=== PATIENT | female | born 1960 | race Caucasian/White ===

== ENCOUNTER 2023-04-26 12:05 | Inpatient (IN) | payer MEDICAID ==
[~2023-04-26] VITALS: Ht 175.3 cm; Wt 67.3 kg
[2023-04-26 15:10] LABS: SODIUM 136 MMOL/L (135-145)
[2023-04-26 15:11] LABS: ALBUMIN 4.1 G/DL (3.4-5.0); BLOOD UREA NITROGEN 14 MG/DL (7-18); eCRCL 72 ML/MIN
[2023-04-26 16:17] LABS: BASOPHILS # (AUTO) 0.1 X10'3 (0-0.2); EOSINOPHILS # (AUTO) 0.1 X10'3 (0-0.9); EOSINOPHILS % (AUTO) 0.5 % (0-6); HEMATOCRIT 50.8 % (35.0-45.0); HEMOGLOBIN 17.2 g/dl (12.0-16.0); LYMPHOCYTES # (AUTO) 1.3 X10'3 (1.1-4.8); LYMPHOCYTES % (AUTO) 9.4 % (21-51); MEAN CORPUSCULAR HEMOGLOBIN 31.2 PG (27.0-31.0); MEAN CORPUSCULAR HGB CONC 33.8 g/dL (33.0-36.5); MEAN CORPUSCULAR VOLUME 92.5 FL (78-98); MEAN PLATELET VOLUME 10.2 FL (7.4-10.4); MONOCYTES # (AUTO) 0.8 X10'3 (0-0.9); MONOCYTES % (AUTO) 5.7 % (2-12); NEUTROPHILS # (AUTO) 11.5 X10'3 (1.8-7.7); NEUTROPHILS % (AUTO) 83.4 % (42-75); PLATELET COUNT 112 X10'3 (140-440); RED CELL DISTRIBUTION WIDTH 13.2 % (11.5-14.5); WHITE BLOOD COUNT 13.8 X10'3 (4.5-11.0)
[2023-04-26] MEDS ORDERED: ondansetron/PF 4mg/2ml inj IV PRN (17:35)
[2023-04-26] MEDS ORDERED: potassium Cl 20 mEq SR tablet PO PRN ×2 (17:35)
[2023-04-26] MEDS ORDERED: HYDROcodone/acetaminophen 5mg/325mg tablet PO PRN (17:35)
[2023-04-26] MEDS ORDERED: magnesium Cl slow-release 64mg tablet PO PRN (17:35)
[2023-04-26] MEDS ORDERED: magnesium 2GM in 50ml NS 50 ML IV PRN (17:35)
[2023-04-26] MEDS ORDERED: magnesium hydroxide 30ml (MOM) UD suspension PO PRN (17:35)
[2023-04-26] MEDS ORDERED: mag hydrox/Alum hydrox/simeth 30ml oral suspension PO PRN (17:35)
[2023-04-26] MEDS ORDERED: magnesium 4gm in 100ml NS 100 ML IV PRN (17:35)
[2023-04-26] MEDS ORDERED: morphine 2 MG/ML inj. syringe IV PRN (17:35)
[2023-04-26] MEDS ORDERED: potassium Cl 40MEQ/1/2NS 520ml 520 ML IV PRN (17:35)
[2023-04-26] MEDS ORDERED: diphenhydrAMINE 25mg capsule PO PRN (17:35)
[2023-04-26] MEDS ORDERED: acetaminophen 325mg tablet PO PRN ×2 (17:35)
[2023-04-26 18:32] LABS: HEMOGLOBIN A1C 5.5 % (4.5-6.2)
[2023-04-26 18:37] LABS: ANION GAP 14 (8-16); BUN/CREATININE RATIO 16.9 (10.0-20.0); CALCIUM 10.4 MG/DL (8.5-10.1); CHLORIDE 99 MMOL/L (99-107); CREATININE 0.83 MG/DL (0.40-0.90); GLUCOSE 100 MG/DL (70-104); POTASSIUM 4.1 MMOL/L (3.5-5.1); TOTAL CARBON DIOXIDE 23.2 MMOL/L (24-32); eGFR 69 ML/MIN
[2023-04-26] MEDS: K and/or MAG REPLACEMENT MC SCH (19:08)
[2023-04-26] MEDS ORDERED: metroNIDAZOLE-Flagyl 500mg/NS 100 ML IV SCH (19:10)
[2023-04-26] MEDS ORDERED: CefTRIAXone 2gm/D5W 50ml BAG 50 ML IV SCH (19:15)
[2023-04-26 19:17] LABS: MAGNESIUM 2.1 MG/DL (1.5-2.4)
[2023-04-26 19:20] LABS: PRO BRAIN NATRIURETIC PEPTIDE 662 PG/ML (0-125)
[2023-04-26] MEDS: metroNIDAZOLE-Flagyl 500mg/NS 100 ML IV SCH (19:46)
[2023-04-26] MEDS: nicotine 14mg patch - 24hr TD SCH (19:46)
[2023-04-26] MEDS: docusate sod 100mg capsule PO SCH (20:00)
[2023-04-26] MEDS: heparin, porcine 5000 units/ml vial SQ SCH (20:00)
[2023-04-26] MEDS ORDERED: CefTRIAXone 2gm/D5W 50ml BAG 50 ML IV ONE (20:50)
[2023-04-27] MEDS: morphine 2 MG/ML inj. syringe IV PRN ×3 (00:49→23:41)
[2023-04-27] MEDS: metroNIDAZOLE-Flagyl 500mg/NS 100 ML IV SCH ×4 (01:13→23:15)
[2023-04-27 03:00] VITALS: RESP 16; O2SAT 96
[2023-04-27] MEDS ORDERED: CefTRIAXone 2gm/D5W 50ml BAG 50 ML IV SCH ×2 (03:11→08:00)
[2023-04-27] MEDS: HYDROcodone/acetaminophen 10/325mg tab PO PRN ×4 (03:18→22:42)
[2023-04-27] MEDS: HYDROmorphone/PF 0.2 MG/ML SYRINGE IV PRN ×2 (03:18→17:45)
[2023-04-27 06:28] LABS: BASOPHILS # (AUTO) 0.1 X10'3 (0-0.2); BASOPHILS % (AUTO) 0.8 % (0-1); EOSINOPHILS # (AUTO) 0.2 X10'3 (0-0.9); EOSINOPHILS % (AUTO) 1.8 % (0-6); HEMATOCRIT 42.2 % (35.0-45.0); HEMOGLOBIN 14.3 g/dl (12.0-16.0); LYMPHOCYTES # (AUTO) 0.9 X10'3 (1.1-4.8); LYMPHOCYTES % (AUTO) 8.4 % (21-51); MEAN CORPUSCULAR HEMOGLOBIN 31.2 PG (27.0-31.0); MEAN CORPUSCULAR VOLUME 91.8 FL (78-98); MEAN PLATELET VOLUME 9.8 FL (7.4-10.4); MONOCYTES # (AUTO) 1.1 X10'3 (0-0.9); MONOCYTES % (AUTO) 10.4 % (2-12); NEUTROPHILS # (AUTO) 8.7 X10'3 (1.8-7.7); NEUTROPHILS % (AUTO) 78.6 % (42-75); PLATELET COUNT 121 X10'3 (140-440)
[2023-04-27 07:00] VITALS: BP 147/96; PULSE 81; RESP 16; TEMP 98.3; O2SAT 98
[2023-04-27 07:37] LABS: ALANINE AMINOTRANSFERASE 30 U/L (12-78); ALBUMIN/GLOBULIN RATIO 0.7 (1.1-1.5); ALKALINE PHOSPHATASE 82 IU/L (46-116); ANION GAP 10 (8-16); ASPARTATE AMINO TRANSFERASE 28 U/L (10-37); BILIRUBIN,TOTAL 0.7 MG/DL (0.1-1.0); BLOOD UREA NITROGEN 13 MG/DL (7-18); BUN/CREATININE RATIO 15.7 (10.0-20.0); CALCIUM 9.6 MG/DL (8.5-10.1); CHLORIDE 104 MMOL/L (99-107); CHOL/HDL RATIO 2.4 (0.00-4.99); CHOLESTEROL 123 MG/DL (0-200); CREATININE 0.83 MG/DL (0.40-0.90); GLUCOSE 107 MG/DL (70-104); HDL CHOLESTEROL 52 MG/DL (35-60); LDL CHOLESTEROL 59 MG/DL (50-100); MAGNESIUM 1.7 MG/DL (1.5-2.4); PHOSPHORUS 2.1 MG/DL (2.3-4.5); POTASSIUM 3.7 MMOL/L (3.5-5.1); SODIUM 140 MMOL/L (135-145); TOTAL CARBON DIOXIDE 26.3 MMOL/L (24-32); TOTAL PROTEIN 7.2 G/DL (6.4-8.2); TRIGLYCERIDES 50 MG/DL (20-135); eCRCL 72 ML/MIN; eGFR 69 ML/MIN
[2023-04-27] MEDS: K and/or MAG REPLACEMENT MC SCH ×2 (08:00→20:00)
[2023-04-27] MEDS: heparin, porcine 5000 units/ml vial SQ SCH ×2 (08:41→19:10)
[2023-04-27] MEDS: docusate sod 100mg capsule PO SCH ×2 (08:41→19:10)
[2023-04-27 10:00] VITALS: BP 138/86; PULSE 73; RESP 16; TEMP 97.9; O2SAT 97
[2023-04-27 10:48] VITALS: RESP 18; O2SAT 97
[2023-04-27] MEDS ORDERED: VANCOMYCIN 1,500MG inj. 1,500 MG in normal saline 500ml IV soln 300 ML IV SCH (13:50)
[2023-04-27] MEDS: lactobacillus rhamnosus 10,000 MMU CELLS/CAPSULE PO SCH (14:17)
[2023-04-27] MEDS ORDERED: VANCOMYCIN 750MG IV in NS 250 ML IV ONE (14:20)
[2023-04-27] MEDS: clindamycin 300mg/D5W 50mL 50 ML IV SCH ×2 (14:25→21:03)
[2023-04-27] MEDS ORDERED: vancomycin 1,750 MG in NS 350ml IV soln IV ONE (14:30)
[2023-04-27] MEDS ORDERED: vancomycin/NS 1 GM ADD-VANTAGE 250 ML X 1 DOSE IV ONE (15:50)
[2023-04-27] MEDS: nicotine 14mg patch - 24hr TD SCH (17:50)
[2023-04-27 18:00] VITALS: BP 173/100; PULSE 74; RESP 15; TEMP 98.7; O2SAT 100
[2023-04-27] MEDS ORDERED: amLODIPine 5mg tablet PO ONE (18:40)
[2023-04-27 22:00] VITALS: BP 162/81; PULSE 77; RESP 16; TEMP 98.8; O2SAT 95
[2023-04-28] MEDS: clindamycin 300mg/D5W 50mL 50 ML IV SCH ×2 (01:57→07:26)
[2023-04-28] MEDS: HYDROcodone/acetaminophen 10/325mg tab PO PRN (02:42)
[2023-04-28] MEDS: HYDROmorphone/PF 0.2 MG/ML SYRINGE IV PRN (03:13)
[2023-04-28] MEDS ORDERED: vancomycin/NS 1 GM ADD-VANTAGE 250 ML IV SCH (04:00)
[2023-04-28] MEDS: morphine 2 MG/ML inj. syringe IV PRN ×2 (04:51→09:00)
[2023-04-28 06:00] VITALS: BP 167/98; PULSE 78; RESP 17; TEMP 97.9; O2SAT 99
[2023-04-28 06:12] LABS: BASOPHILS % (AUTO) 0.5 % (0-1); EOSINOPHILS # (AUTO) 0.2 X10'3 (0-0.9); EOSINOPHILS % (AUTO) 2.6 % (0-6); HEMATOCRIT 46.1 % (35.0-45.0); LYMPHOCYTES # (AUTO) 1.4 X10'3 (1.1-4.8); LYMPHOCYTES % (AUTO) 16.7 % (21-51); MEAN CORPUSCULAR HEMOGLOBIN 31.8 PG (27.0-31.0); MEAN CORPUSCULAR HGB CONC 34.6 g/dL (33.0-36.5); MEAN CORPUSCULAR VOLUME 91.9 FL (78-98); MEAN PLATELET VOLUME 10.3 FL (7.4-10.4); MONOCYTES % (AUTO) 11.2 % (2-12); NEUTROPHILS # (AUTO) 5.8 X10'3 (1.8-7.7); PLATELET COUNT 125 X10'3 (140-440); RED BLOOD COUNT 5.02 X10'6 (4.20-5.60); WHITE BLOOD COUNT 8.5 X10'3 (4.5-11.0)
[2023-04-28 06:37] LABS: ALANINE AMINOTRANSFERASE 34 U/L (12-78); ALBUMIN 3.3 G/DL (3.4-5.0); ALBUMIN/GLOBULIN RATIO 0.7 (1.1-1.5); ALKALINE PHOSPHATASE 89 IU/L (46-116); ANION GAP 10 (8-16); ASPARTATE AMINO TRANSFERASE 33 U/L (10-37); BILIRUBIN,TOTAL 0.7 MG/DL (0.1-1.0); BLOOD UREA NITROGEN 11 MG/DL (7-18); BUN/CREATININE RATIO 13.6 (10.0-20.0); CALCIUM 9.4 MG/DL (8.5-10.1); CHLORIDE 102 MMOL/L (99-107); CREATININE 0.81 MG/DL (0.40-0.90); GLUCOSE 101 MG/DL (70-104); MAGNESIUM 1.8 MG/DL (1.5-2.4); PHOSPHORUS 1.7 MG/DL (2.3-4.5); POTASSIUM 3.2 MMOL/L (3.5-5.1); SODIUM 136 MMOL/L (135-145); TOTAL CARBON DIOXIDE 23.8 MMOL/L (24-32); TOTAL PROTEIN 7.9 G/DL (6.4-8.2); eCRCL 73 ML/MIN; eGFR 71 ML/MIN
[2023-04-28] MEDS ORDERED: Neutra Phos packet PO PRN (07:25)
[2023-04-28] MEDS: docusate sod 100mg capsule PO SCH (07:25)
[2023-04-28] MEDS: heparin, porcine 5000 units/ml vial SQ SCH (07:25)
[2023-04-28] MEDS: lactobacillus rhamnosus 10,000 MMU CELLS/CAPSULE PO SCH (07:25)
[2023-04-28] MEDS: metroNIDAZOLE-Flagyl 500mg/NS 100 ML IV SCH (07:26)
[2023-04-28] MEDS: K and/or MAG REPLACEMENT MC SCH (08:00)
[2023-04-28 09:05] VITALS: RESP 19; O2SAT 97
[2023-04-28 10:00] VITALS: BP 164/102; PULSE 73; RESP 17; TEMP 98.9; O2SAT 98
[2023-04-28 10:08] VITALS: RESP 18
[2023-04-28] MEDS ORDERED: ketorolac trometh. 30mg/ml inj. IV PRN (11:25)
[2023-04-28] MEDS ORDERED: oxyCODONE/APAP 10/325mg tablet PO PRN (11:25)
[2023-04-28] MEDS ORDERED: CLINDAMYCIN 600mg IN NS 50ML 50 ML IV SCH (16:00)
[2023-04-29] MEDS ORDERED: VANCOMYCIN LEVEL IV ONE (03:30)
== END 2023-04-28 11:52 | disposition left against medical advice (07) | DRG 383 ==
LOC: ER 12:05 → ED HOLD 17:40 → UNDOADMIN 17:40 → ED HOLD 04-27 02:20 → ORTHO 4S 04-27 03:10 → ED HOLD 04-27 03:10 → UNDODISIN 04-28 11:52
PROVIDERS: ADMIT Internal Medicine; ATTEND Internal Medicine
PROC: 0HBFXZZ Excision of Right Hand Skin, External Approach (ICD-10-PCS; principal; 2023-04-27)
DX: L03.113 Cellulitis of right upper limb (principal); D69.6 Thrombocytopenia, unspecified; R65.10 Systemic inflammatory response syndrome (SIRS) of non-infectious origin without acute organ dysfunction; I10 Essential (primary) hypertension; I34.1 Nonrheumatic mitral (valve) prolapse; L08.89 Other specified local infections of the skin and subcutaneous tissue; I45.6 Pre-excitation syndrome
CPT/HCPCS: 36415; 71045; 73130; 73200; 80048; 80053; 80061; 83036; 83605; 83735; 83880; 84100; 84145; 85025; 85651; 86140; 87040; 87081; 93306; 99285; A6446; A6449; G0378; J0696; J1170; J1644; J2270; J2405; J3370; J3490; J7040; J7050